=== PATIENT | female | born 1960 | race Two or more races ===

== ENCOUNTER 2016-12-21 05:21 | Inpatient (IN) | payer OTHER ==
[2016-12-21] MEDS ORDERED: Dextrose 5%-Lactated Ringers 1,000 ML IV SCH (06:00)
[2016-12-21] MEDS: fentaNYL 25 MCG/HR Transdermal Patch TRDERM SCH (06:22)
[2016-12-21] MEDS ORDERED: Meropenem 500 MG SDV ONE (06:39)
[2016-12-21] MEDS ORDERED: Midazolam 1 MG/ML 2 ML SDV ONE (07:13)
[2016-12-21] MEDS ORDERED: fentaNYL 250 MCG/5 ML SDV ONE (07:13)
[2016-12-21] MEDS ORDERED: Propofol 200 MG/20 ML SDV ONE (07:14)
[2016-12-21] MEDS ORDERED: Ondansetron 4 MG/2 ML SDV ONE (07:14)
[2016-12-21] MEDS ORDERED: Rocuronium 50 MG/5 ML Vial ONE ×2 (07:14→08:37)
[2016-12-21] MEDS ORDERED: Neostigmine Methylsulfate 1 MG/ML 5 ML Syringe ONE (07:14)
[2016-12-21] MEDS ORDERED: Dexamethasone 4 MG/ML SDV ONE (07:14)
[2016-12-21] MEDS ORDERED: ceFAZolin 2 GM in Premix Bag 1 BAG IV ONE (07:15)
[2016-12-21] MEDS ORDERED: Naloxone 0.4 MG/ML SDV IVPUSH PRN (08:23)
[2016-12-21] MEDS ORDERED: Naloxone 0.4 MG/ML SDV IV PRN (08:30)
[2016-12-21] MEDS: HYDROmorphone/Normal Saline 15 MG/30 ML PCA IV PRN ×2 (08:38→20:52)
[2016-12-21] MEDS ORDERED: fentaNYL 100 MCG/2 ML SDV ONE (09:08)
[2016-12-21] MEDS ORDERED: Meperidine PF 100 MG/ML Syringe IM ONE (09:55)
[2016-12-21] MEDS ORDERED: hydrOXYzine HCl 50 MG/ML SDV IM ONE (09:55)
[2016-12-21] MEDS ORDERED: Ondansetron 4 MG/2 ML SDV IVPUSH PRN (11:28)
[2016-12-21] MEDS: FENTANYL PATCH CHECK TOP SCH ×2 (13:05→20:55)
[2016-12-21] MEDS ORDERED: FENTANYL PATCH CHECK TOP SCH (14:00)
[2016-12-21] MEDS: Dextrose 5%-Lactated Ringers 1,000 ML IV SCH ×2 (15:01→21:17)
[2016-12-21] MEDS: ceFAZolin 2 GM in Sodium Chloride 0.9% 50 ML IV SCH ×2 (15:01→21:17)
[2016-12-21] MEDS: Pantoprazole 40 MG Tab.CR PO SCH (15:03)
[2016-12-21] MEDS: Estradiol 0.5 MG Tab PO SCH (15:04)
[2016-12-22] MEDS: Dextrose 5%-Lactated Ringers 1,000 ML IV SCH (04:12)
[2016-12-22] MEDS: ceFAZolin 2 GM in Sodium Chloride 0.9% 50 ML IV SCH (05:26)
[2016-12-22] MEDS: Cyclobenzaprine 10 MG Tab PO PRN ×3 (07:21→21:57)
[2016-12-22] MEDS ORDERED: Dextrose 5%-Lactated Ringers 1,000 ML IV SCH ×2 (07:45→09:45)
[2016-12-22] MEDS: Pantoprazole 40 MG Tab.CR PO SCH (07:51)
[2016-12-22] MEDS: Doxycycline 100 MG Cap PO SCH ×2 (08:48→20:16)
[2016-12-22] MEDS: Estradiol 0.5 MG Tab PO SCH (08:48)
[2016-12-22] MEDS: FENTANYL PATCH CHECK TOP SCH ×2 (08:49→20:16)
[2016-12-22] MEDS: Multivitamins with Iron Tab.Chew PO SCH ×2 (10:07→20:15)
[2016-12-22] MEDS: HYDROmorphone/Normal Saline 15 MG/30 ML PCA IV PRN (10:51)
[2016-12-22] MEDS: Acetaminophen/oxyCODONE 325-5 MG Tab PO PRN ×2 (16:05→20:12)
[2016-12-22] MEDS ORDERED: Calcium Carbonate 500 MG Tab.Chew PO PRN (20:34)
[2016-12-23] MEDS: Acetaminophen/oxyCODONE 325-5 MG Tab PO PRN ×6 (00:07→20:27)
[2016-12-23] MEDS: Cyclobenzaprine 10 MG Tab PO PRN ×4 (02:52→21:58)
[2016-12-23] MEDS: Pantoprazole 40 MG Tab.CR PO SCH ×2 (07:51→15:44)
[2016-12-23] MEDS: FENTANYL PATCH CHECK TOP SCH ×2 (08:07→20:42)
[2016-12-23] MEDS: Doxycycline 100 MG Cap PO SCH ×2 (08:54→20:43)
[2016-12-23] MEDS: Multivitamins with Iron Tab.Chew PO SCH ×2 (08:54→20:42)
[2016-12-23] MEDS: Estradiol 0.5 MG Tab PO SCH (08:54)
[2016-12-23] MEDS ORDERED: Pneumococcal Polyvalent-23 Vaccine 0.5 ML SDV IM ONE (09:00)
[2016-12-23] MEDS ORDERED: Cyanocobalamin (Vitamin B12) 1,000 MCG/ML SDV IM ONE (09:00)
[2016-12-23] MEDS: Ibuprofen 400 MG Tab PO SCH ×3 (09:55→21:58)
--- NOTE | 2016-12-23 12:35 | PCM.SURGPN ---
- General Info Date of Service: 12/23/16 Date of Surgery/Procedure: 12/21/16 POD#: 2 Functional Status: Denies: pain controlled - Review of Systems General: Reports: No Symptoms Pulmonary: Reports: no symptoms Cardiovascular: Reports: No Symptoms Gastrointestinal: Reports: Abdominal pain Musculoskeletal: Reports: other (diffuse joint pain and muscle soreness) Systems Review Comment:: Patient is afebrile with normal vital signs. Intake of 3300mL. She states the Percocet is taking the edge off her abdominal pain but is requesting more medication. - Patient Data Vitals - most recent: Last Vital Signs Temp 37.0 C 12/23/16 11:27 Pulse 71 12/23/16 11:27 Resp 16 12/23/16 11:27 BP 154/70 H 12/23/16 11:27 Pulse Ox 92 L 12/23/16 11:27 Weight - most recent: 75.659 kg I&O - last 24 hours: Intake & Output 12/22/16 12/23/16 12/23/16 22:59 06:59 14:59 Intake Total 1410 900 840 Output Total 2125 1440 950 Balance -715 -540 -110 Med Orders - Current: Current Medications Calcium Carbonate/Glycine (Tums) 500 mg PO Q2H PRN PRN Reason: Indigestion Last Admin: 12/22/16 20:51 Dose: 500 mg Cyclobenzaprine HCl (Flexeril) 10 mg PO Q6H PRN PRN Reason: Muscle Spasm Last Admin: 12/23/16 09:55 Dose: 10 mg Doxycycline Hyclate (Vibramycin) 100 mg PO BID [facility] Last Admin: 12/23/16 08:54 Dose: 100 mg Estradiol (Estradiol) 0.5 mg PO DAILY [facility] Last Admin: 12/23/16 08:54 Dose: 0.5 mg Fentanyl (Duragesic) 25 mcg TRDERM Q72H [facility] Last Admin: 12/21/16 06:22 Dose: 25 mcg Ibuprofen (Motrin) 400 mg PO Q6H [facility] Last Admin: 12/23/16 09:55 Dose: 400 mg Medroxyprogesterone Acetate (Provera) 1.25 mg PO DAILY [facility] Last Admin: 12/23/16 08:54 Dose: 1.25 mg Metaxalone (Skelaxin) 800 mg PO TID [facility] Last Admin: 12/23/16 08:54 Dose: 800 mg Multivitamins/Iron (Child Chew Iron) 1 tab PO BID [facility] Last Admin: 12/23/16 08:54 Dose: 1 tab Fentanyl Patch Check 1 each TOP BID [facility] Last Admin: 12/23/16 08:07 Dose: Not Given Ondansetron HCl (Zofran) 4 mg IVPUSH Q4H PRN PRN Reason: NAUSEA Oxycodone/Acetaminophen (Percocet 325-5 Mg) 1 - 2 tab PO Q4H PRN PRN Reason: Pain Last Admin: 12/23/16 12:25 Dose: 2 tab Pantoprazole Sodium (Protonix) 40 mg PO BIDAC [facility] Discontinued Medications Cyanocobalamin (Vitamin B12) 1,000 mcg IM ONETIME ONE Stop: 12/23/16 09:01 Last Admin: 12/23/16 08:53 Dose: 1,000 mcg Dexamethasone (Dexamethasone) Confirm Administered Dose 4 mg .ROUTE .STK-MED ONE Stop: 12/21/16 07:15 Fentanyl (Sublimaze) Confirm Administered Dose 250 mcg .ROUTE .STK-MED ONE Stop: 12/21/16 07:14 Fentanyl (Sublimaze) Confirm Administered Dose 100 mcg .ROUTE .STK-MED ONE Stop: 12/21/16 09:09 Glycopyrrolate () Confirm Administered Dose 1 mg .ROUTE .STK-MED ONE Stop: 12/21/16 07:15 Hydromorphone HCl (Dilaudid [employer] 15 Mg In Ns 30 Ml) 0 mg IV ASDIRECTED PRN; Protocol PRN Reason: Pain Last Admin: 12/22/16 10:51 Dose: 15 mg Hydroxyzine HCl (Vistaril) 100 mg IM ONETIME ONE Stop: 12/21/16 09:56 Last Admin: 12/21/16 09:59 Dose: 100 mg Dextrose/Lactated Ringer's (Dextrose 5%-Lactated Ringers) 1,000 mls @ 100 mls/ hr IV ASDIRECTED [facility] Last Admin: 12/21/16 06:46 Dose: 100 mls/hr Cefazolin Sodium/Dextrose 2 gm (/ Premix) 50 mls @ 100 mls/hr IV ONETIME ONE Stop: 12/21/16 07:44 Last Admin: 12/21/16 07:09 Dose: 100 mls/hr Dextrose/Lactated Ringer's (Dextrose 5%-Lactated Ringers) 1,000 mls @ 175 mls/ hr IV ASDIRECTED [facility] Last Admin: 12/22/16 04:12 Dose: 175 mls/hr Cefazolin Sodium 2 gm/ Sodium (Chloride) 50 mls @ 100 mls/hr IV Q8H [facility] Stop: 12/22/16 06:29 Last Admin: 12/22/16 05:26 Dose: 100 mls/hr Dextrose/Lactated Ringer's (Dextrose 5%-Lactated Ringers) 1,000 mls @ 100 mls/ hr IV ASDIRECTED [facility] Dextrose/Lactated Ringer's (Dextrose 5%-Lactated Ringers) 1,000 mls @ 50 mls/ hr IV ASDIRECTED [facility] Meperidine HCl (Demerol) 100 mg IM ONETIME ONE Stop: 12/21/16 09:56 Last Admin: 12/21/16 10:00 Dose: 100 mg Meropenem (Merrem) Confirm Administered Dose 500 mg .ROUTE .STK-MED ONE Stop: 12/21/16 06:40 Last Admin: 12/21/16 08:02 Dose: 500 mg Midazolam HCl (Versed 1 Mg/Ml) Confirm Administered Dose 2 mg .ROUTE .STK-MED ONE Stop: 12/21/16 07:14 Naloxone HCl (Narcan) 0.1 mg IV ASDIRECTED PRN PRN Reason: decreased respiratory rate Neostigmine Methylsulfate (Neostigmine) Confirm Administered Dose 5 mg .ROUTE .STK-MED ONE Stop: 12/21/16 07:15 Ondansetron HCl (Zofran) Confirm Administered Dose 4 mg .ROUTE .STK-MED ONE Stop: 12/21/16 07:15 Pantoprazole Sodium (Protonix) 40 mg PO ACBREAKFAST [facility] Last Admin: 12/23/16 07:51 Dose: 40 mg Pneumococcal Polyvalent Vaccine (Pneumovax 23) 0.5 ml IM .ONCE ONE Stop: 12/23/16 09:01 Last Admin: 12/23/16 09:09 Dose: 0.5 ml Propofol (Diprivan 20 Ml) Confirm Administered Dose 200 mg .ROUTE .STK-MED ONE Stop: 12/21/16 07:15 Rocuronium Flushing (Zemuron) Confirm Administered Dose 50 mg .ROUTE .STK-MED ONE Stop: 12/21/16 07:15 Rocuronium Flushing (Zemuron) Confirm Administered Dose 50 mg .ROUTE .STK-MED ONE Stop: 12/21/16 08:38 - Exam Wound/Incisions: dressing dry and intact General: alert, oriented HEENT: Pupils equal, Pupils reactive, EOMI, Mucous membr. moist/pink Neck: supple Lungs: Clear to auscultation, Normal respiratory effort Cardiovascular: Regular Rate, Regular Rhythm Abdomen: bowel sounds present, soft Extremities: no edema Skin: warm, dry, intact - Problem List Review Problem List Initiated/Reviewed/Updated: Yes - My Orders Last 24 Hours: Active Orders 24 hr Category Date Time Status Communication Order [RC] ROUTINE Care 12/23/16 08:30 Active May Shower [RC] ASDIRECTED Care 12/23/16 08:28 Active Acetaminophen/oxyCODONE [Percocet 325-5 MG] Med 12/22/16 15:56 Active 1 - 2 tab PO Q4H PRN Calcium Carbonate [Tums] Med 12/22/16 20:34 Active 500 mg PO Q2H PRN Ibuprofen [Motrin] Med 12/23/16 10:00 Active 400 mg PO Q6H Pantoprazole [ProTONIX] Med 12/23/16 16:30 Active 40 mg PO BIDAC Medication Orders Calcium Carbonate/Glycine (Tums) 500 mg PO Q2H PRN PRN Reason: Indigestion Last Admin: 12/22/16 20:51 Dose: 500 mg Cyclobenzaprine HCl (Flexeril) 10 mg PO Q6H PRN PRN Reason: Muscle Spasm Last Admin: 12/23/16 09:55 Dose: 10 mg Admin: 12/23/16 02:52 Dose: 10 mg Admin: 12/22/16 21:57 Dose: 10 mg Admin: 12/22/16 14:03 Dose: 10 mg Admin: 12/22/16 07:21 Dose: 10 mg Doxycycline Hyclate (Vibramycin) 100 mg PO BID [facility] Last Admin: 12/23/16 08:54 Dose: 100 mg Admin: 12/22/16 20:16 Dose: 100 mg Admin: 12/22/16 08:48 Dose: 100 mg Estradiol (Estradiol) 0.5 mg PO DAILY [facility] Last Admin: 12/23/16 08:54 Dose: 0.5 mg Admin: 12/22/16 08:48 Dose: 0.5 mg Admin: 12/21/16 15:04 Dose: 0.5 mg Fentanyl (Duragesic) 25 mcg TRDERM Q72H [facility] Last Admin: 12/21/16 06:22 Dose: 25 mcg Ibuprofen (Motrin) 400 mg PO Q6H [facility] Last Admin: 12/23/16 09:55 Dose: 400 mg Medroxyprogesterone Acetate (Provera) 1.25 mg PO DAILY [facility] Last Admin: 12/23/16 08:54 Dose: 1.25 mg Admin: 12/22/16 08:48 Dose: 1.25 mg Admin: 12/21/16 15:03 Dose: 1.25 mg Metaxalone (Skelaxin) 800 mg PO TID [facility] Last Admin: 12/23/16 08:54 Dose: 800 mg Admin: 12/22/16 20:16 Dose: 800 mg Admin: 12/22/16 14:01 Dose: 800 mg Admin: 12/22/16 10:07 Dose: 800 mg Admin: 12/21/16 21:42 Dose: 800 mg Admin: 12/21/16 15:03 Dose: 800 mg Multivitamins/Iron (Child Chew Iron) 1 tab PO BID [facility] Last Admin: 12/23/16 08:54 Dose: 1 tab Admin: 12/22/16 20:15 Dose: 1 tab Admin: 12/22/16 10:07 Dose: 1 tab Fentanyl Patch Check 1 each TOP BID [facility] Last Admin: 12/23/16 08:07 Dose: Admin: 12/22/16 20:16 Dose: Admin: 12/22/16 08:49 Dose: Admin: 12/21/16 20:55 Dose: Admin: 12/21/16 13:05 Dose: Ondansetron HCl (Zofran) 4 mg IVPUSH Q4H PRN PRN Reason: NAUSEA Oxycodone/Acetaminophen (Percocet 325-5 Mg) 1 - 2 tab PO Q4H PRN PRN Reason: Pain Last Admin: 12/23/16 12:25 Dose: 2 tab Admin: 12/23/16 08:05 Dose: 2 tab Admin: 12/23/16 04:07 Dose: 2 tab Admin: 12/23/16 00:07 Dose: 2 tab Admin: 12/22/16 20:12 Dose: 2 tab Admin: 12/22/16 16:05 Dose: 2 tab Pantoprazole Sodium (Protonix) 40 mg PO BIDAC [facility] - Assessment Assessment (Free Text/Narrative):: Repair of recurrent incarcerated incisional hernia with mesh. - Plan Plan (Free Text/Narrative):: 1. Continue Percocet, 1-2 tabs q4h and Flexeril q6h for pain. 2. Ibuprofen q6h (patient has a remote history of gastritis but states Ibuprofen works well for her. 3. Protonix 40mg PO BID ac 4. Can take dressing off and patient can shower.
[2016-12-24] MEDS: Acetaminophen/oxyCODONE 325-5 MG Tab PO PRN ×4 (00:45→12:49)
[2016-12-24] MEDS: Ibuprofen 400 MG Tab PO SCH ×2 (03:13→10:02)
[2016-12-24] MEDS: Cyclobenzaprine 10 MG Tab PO PRN ×2 (04:28→10:02)
[2016-12-24] MEDS: fentaNYL 25 MCG/HR Transdermal Patch TRDERM SCH (07:02)
[2016-12-24] MEDS: Pantoprazole 40 MG Tab.CR PO SCH (07:42)
[2016-12-24] MEDS: Doxycycline 100 MG Cap PO SCH (09:05)
[2016-12-24] MEDS: Multivitamins with Iron Tab.Chew PO SCH (09:05)
[2016-12-24] MEDS: Estradiol 0.5 MG Tab PO SCH (09:06)
[2016-12-24] MEDS: FENTANYL PATCH CHECK TOP SCH (09:07)
[2016-12-24 11:57] VITALS: BP 133/75
--- NOTE | 2016-12-25 04:45 | DISCH ---
ADMISSION DIAGNOSES: Abdominal hernia, SP Erick-en-Y gastric bypass surgery, history of sigmoid perforation during colonoscopy, obstructive sleep apnea on CPAP and chronic back pain, and nicotine addiction, unspecified surgical malabsorption, and B12 deficiency. DISCHARGE DIAGNOSIS: Repair of recurrent incarcerated incisional hernia with mesh and panniculectomy. HISTORY: Areli Bean is a 56-year-old female and who had recurrence of a ventral hernia and excess of skin removal. After preoperative evaluation and discussion of possible risks and possible complications, she wished to proceed with surgical procedure. HOSPITAL COURSE: Areli had her surgery on 12/21/2016, she had no operative complications on postop day #1, she remained to be on the IP LITIGATION [place], she started on a diet, her activity was good. On postop day #2, she was changed to oral pain medication. Her diet was advanced. On postop day #3, she was ready to be discharged to home. Her activity was good. Vital signs were stable. Afebrile, she was taught to strip, empty, measure and drain her MARIIA drains. PHYSICAL EXAMINATION: GENERAL: Areli Bean is a 56-year-old female. VITAL SIGNS: Height is 5 feet 3 inches. Weight is 166 pounds. TPR is 97.9, 68, and 18, blood pressure 154/84. HEENT: Negative. NECK: Supple. HEART: Regular rate and rhythm. LUNGS: Clear. ABDOMEN: Incision looks good. [place] intact. MARIIA drains x2 intact, draining a pink serous drainage, 75 mL and 40 mL respectively and abdominal binder has been on. EXTREMITIES: Without peripheral edema. DISPOSITION: Discharged to home. CONDITION: Stable and improving. FOLLOWUP APPOINTMENT: With Beatrice Burnham PA-C on 01/04/2017 at 10:00 a.m. HOME MEDICATIONS: Percocet 5/325 mg 1 to 2 every 4 hours p.r.n. pain #50, Mag citrate to take one bottle when she is home for constipation. Xanax 1 mg oral as directed p.r.n. anxiety, calcium citrate 500 mg oral twice daily, vitamin B12, folic acid one tablet oral daily, Estrace 0.5 mg oral daily, Skelaxin 800 mg oral 3 times a day, multivitamin one tablet oral daily, Protonix 40 mg oral daily, Provera 1.25 mg oral daily. She is to follow up with Beatrice Burnham PA-C on 01/04/2017 at 10:00 a.m. We will review her vitamin and supplements sheets at her followup appointment. DISCHARGE DIET: Usual diet as tolerated. Drink 8 to 10 glasses of water a day. ACTIVITY: 1. No lifting greater than 10 pounds for 6 weeks. Walk 6 times daily, distance and time as tolerated. Driving: Do not drive while on pain medication. May shower. Wear abdominal binder for 2 weeks and then as tolerated. Notify provider if any fever, nausea, or vomiting. Keep site clean and dry. Use incentive spirometer 10 times every hour while awake. 2. Empty, strip, measure and record MARIIA drains 4 times a day and bring record of drainage to clinic and take off fentanyl patch on Wednesday, December 28, 2016.
--- NOTE | 2016-12-25 10:21 | PN ---
DATE OF SERVICE: 12/22/2016 The patient is postop day 1 from repair of a recurrent incarcerated incisional hernia with mesh yesterday, clinically is having a fair bit of discomfort. The patient is receiving some Flexeril additionally, fentanyl patch, and IV Dilaudid. We will leave the current pain management on today, otherwise maximize activity and work with pulmonary toilet, probably switch over to oral pain medication in addition to the patch tomorrow and take the dressing down at that time. The patient is noted to have a tick bite in the left ear today. I think we will doxycycline 100 mg b.i.d. as a precautionary measure. Brandon Whitley MD /[id number]
--- NOTE | 2016-12-28 11:52 | OR ---
DATE OF PROCEDURE: 12/21/2016 PREOPERATIVE DIAGNOSIS: Recurrent incisional hernia. POSTOPERATIVE DIAGNOSIS: Recurrent incarcerated incisional hernia with marked intraabdominal adhesions. OPERATIVE PROCEDURE: 1. Open repair of recurrent incarcerated incisional hernia with mesh (87804, [id number]). 2. Placement Interceed mesh to displace fistula from pelvic and abdominal wall to limit recurrent adhesion formation (13351). ANESTHESIA: General. SILVER WRAPPER: Beatrice Burnham PA-C and BARRINGTON Colin. INDICATION FOR PROCEDURE: This is a 56-year-old presenting with a recurrent incisional hernia located in the midline periumbilical area. Plan is to proceed with an open repair of this with mesh. Potential risks of the procedure, including bleeding, infection, injury to underlying viscera as well as possibility of recurrence of the hernia with the mesh becoming infected or possibly cardiopulmonary septic or hemorrhagic complications leading to were discussed, and the patient wishes to proceed. DETAILS OF PROCEDURE: The patient was taken to the operating room and was placed in a supine position. After general endotracheal anesthesia was induced, the Dubon catheter was inserted and the abdomen prepped and draped. The previous midline incision was then reused and carried down through the skin and subcutaneous tissue. The hernia sac was then encountered and dissected away from the surrounding soft tissues swiping way of adhesions between the small bowel, omentum, and the area of herniation as well as the abdominal wall inferior to that down toward the pelvis. Once these adhesions were all taken down, the area was mapped out, and a 17 x [address] hernia patch was selected at roughly 5 cm in full circumference. On the polypropylene side of the mesh 2-0 Vicryl sutures were placed. Mesh was then soaked in antibiotic-containing saline solution and the stab wounds and placed in the abdominal wall to fix the sutures in location well away from the fascial defect. The upper half of these sutures were in place. The mesh was then pulled into the peritoneal cavity to limit recurrent adhesion formation. There was an Interceed mesh then placed underneath the current mesh as well as extending down into the pelvis to limit recurrent adhesion formation. The remaining sutures were then placed and the mesh was then positioned adequately in all areas. The mesh was then secured and affixed on the underside shelf with titanium tacking screws. The midline fascia was then approximated in a vertical orientation with a running #2 stitch. This resulted in quite a bit of thinned out redundant skin in that area, which was then excised to facilitate more satisfactory closure. The subcutaneous tissue was then drained with a 10-Lux[place]bourg[place] round Connor-Mckeon drain, which was sutured to the skin with 3-0 Vicryl stitch. The subcutaneous tissue was approximated over that with 2 layers of 3-0 and 4-0 Vicryl stitch deep and then laurel for the skin. Dressing was applied. The patient was taken to the recovery room in satisfactory condition. Physician assistant food service manager, Beatrice Burnham, played an essential role in assisting in this case, helping to position the patient, retract structures as needed, as well suturing and cutting sutures as well as and her presence improved patient safety and decreased operative time. Brandon Whitley MD /[id number]
== END 2016-12-24 13:30 | disposition home or self-care (01) | DRG 354 ==
LOC: JP.MS 05:21 → JP.SDS 05:22 → EDSTATUS 07:15 → JP.2SS 09:00
PROVIDERS: ADMIT Surgery; ATTEND Surgery
PROC: 3E0M05Z Introduction of Adhesion Barrier into Peritoneal Cavity, Open Approach (ICD-10-PCS; principal; 2016-12-21)
PROC: 0HB7XZZ Excision of Abdomen Skin, External Approach (ICD-10-PCS; principal; 2016-12-21)
PROC: 0WUF0JZ Supplement Abdominal Wall with Synthetic Substitute, Open Approach (ICD-10-PCS; principal; 2016-12-21)
DX: K43.0 Incisional hernia with obstruction, without gangrene (principal); K91.2 Postsurgical malabsorption, not elsewhere classified; E53.8 Deficiency of other specified B group vitamins; F17.210 Nicotine dependence, cigarettes, uncomplicated; Z98.84 Bariatric surgery status; Z98.0 Intestinal bypass and anastomosis status; G47.33 Obstructive sleep apnea (adult) (pediatric); M54.9 Dorsalgia, unspecified; G89.29 Other chronic pain; W57.XXXA Bitten or stung by nonvenomous insect and other nonvenomous arthropods, initial encounter; K66.0 Peritoneal adhesions (postprocedural) (postinfection); L98.7 Excessive and redundant skin and subcutaneous tissue
CPT/HCPCS: 88302; 90732; 94762; A9270-GY; C1781; J0690; J1100; J1170; J2175; J2185; J2250; J2405; J2704; J3010; J3410; J3420; J7042; J7050

== ENCOUNTER 2017-06-08 05:49 | Day surgery (SDC) | payer OTHER ==
[2017-06-08] MEDS ORDERED: Dextrose 5%-Lactated Ringers 1,000 ML IV SCH (06:00)
[2017-06-08] MEDS ORDERED: Celecoxib 200 MG Cap PO ONE (06:00)
[2017-06-08] MEDS ORDERED: Acetaminophen 500 MG Tab PO ONE (06:00)
[2017-06-08] MEDS ORDERED: ceFAZolin 2 GM in Premix Bag 1 BAG IV ONE (06:30)
[2017-06-08] MEDS ORDERED: ceFAZolin 2 GM in Sodium Chloride 0.9% 50 ML IV ONE (06:30)
[2017-06-08] MEDS ORDERED: Meropenem 500 MG SDV ONE (06:53)
[2017-06-08] MEDS ORDERED: Midazolam 1 MG/ML 2 ML SDV ONE (07:07)
[2017-06-08] MEDS ORDERED: fentaNYL 250 MCG/5 ML SDV ONE (07:07)
[2017-06-08] MEDS ORDERED: Rocuronium 50 MG/5 ML Vial ONE (07:08)
[2017-06-08] MEDS ORDERED: Propofol 200 MG/20 ML SDV ONE (07:08)
[2017-06-08] MEDS ORDERED: Neostigmine Methylsulfate 1 MG/ML 5 ML Syringe ONE (07:08)
[2017-06-08] MEDS ORDERED: Dexamethasone 4 MG/ML SDV ONE (07:08)
[2017-06-08] MEDS ORDERED: Glycopyrrolate 0.2 MG/ML 5 ML MDV ONE (07:08)
[2017-06-08] MEDS ORDERED: Ondansetron 4 MG/2 ML SDV ONE (07:08)
[2017-06-08] MEDS ORDERED: Bupivacaine 0.5%/EPINEPHrine 1:200,000 50 ML MDV ONE (07:59)
[2017-06-08] MEDS ORDERED: Ketamine 500 MG/5 ML MDV IV ONE (08:00)
[2017-06-08] MEDS ORDERED: Linezolid 200 MG/100 ML Bag IRR ONE (08:05)
[2017-06-08] MEDS ORDERED: Ketorolac 60 MG/2 ML SDV IM ONE (09:03)
[2017-06-08 10:37] VITALS: BP 132/77
--- NOTE | 2017-06-13 13:05 | OR ---
DATE OF PROCEDURE: 06/08/2017 PREOPERATIVE DIAGNOSIS: Incarcerated incisional hernia. POSTOPERATIVE DIAGNOSIS: Incarcerated incisional hernia. OPERATIVE PROCEDURE: Open repair of incarcerated incisional hernia with mesh ([id number], [id number]). ANESTHESIA: General. INDICATIONS FOR PROCEDURE: A 57-year-old female presenting with some pain located adjacent to one of her trocar sites with fullness consistent with an incarcerated incisional hernia. Plan is to proceed with an open repair of this with a mesh technique. Potential risks including bleeding, infection, recurrence of the hernia, chronic pain following the procedure were all reviewed and the patient wishes to proceed. DETAILS OF PROCEDURE: The patient was taken to the operating room and placed in a supine position. The area of concern had been marked in the preoperative area and after general endotracheal anesthesia was induced, a Dubon catheter was inserted and the abdomen was prepped and draped. A transverse incision over the palpable area of abnormality which had been marked preoperatively was then made and carried down through the skin and subcutaneous tissue, and down onto the area of the incarcerated soft tissues. This included some preperitoneal fat. This was dissected down to the level of the hernia defect and excised at that level. The patient had a roughly 8 or 10 mm fascial defect. This was then turned inward. A medium mesh plug was then placed into the defect and sutured on 4 corners with horizontal mattress sutures, positioned at the edge of the mesh underneath the edges of the defect. The defect itself was then approximated with a 2-0 Vicryl stitch. The skin and subcutaneous tissues were then approximated with 3-0 and 4-0 Vicryl stitch and dressing applied. The area was anesthetized with 0.5% Marcaine with epinephrine as well at the conclusion of the procedure and the patient was taken to the recovery room in satisfactory condition. Brandon Whitley MD /[id number]
== END 2017-06-08 11:10 | disposition home or self-care (01) ==
LOC: JP.SDS 05:49
PROVIDERS: ATTEND Surgery
DX: K43.0 Incisional hernia with obstruction, without gangrene (principal); G47.33 Obstructive sleep apnea (adult) (pediatric); G89.29 Other chronic pain; M54.5 Low back pain; Z99.89 Dependence on other enabling machines and devices; Z98.84 Bariatric surgery status; Z79.899 Other long term (current) drug therapy; Z90.49 Acquired absence of other specified parts of digestive tract
CPT/HCPCS: 36415; 49561; 49568; 80048; 85027; A9270; C1781; J0690; J1100; J1885; J2020; J2250; J2405; J2704; J2710; J3010; J7042; J7050; 88302; J2185